=== PATIENT | male | born 1960 | race Caucasian/White ===

== ENCOUNTER → 2017-04-11 11:39 | Outpatient (CLI) | payer BC, SELFPAY ==
[2017-04-11 12:54] LABS: Prostate Specific Ag Screen < 0.1 ng/mL (0.0-4.0)
== END ==
PROVIDERS: PCP Family Medicine; Visit Provider Urology
DX: C61 Malignant neoplasm of prostate (principal)
CPT/HCPCS: 36415; G0103

== ENCOUNTER → 2017-05-12 09:05 | Outpatient (CLI) | payer BC, SELFPAY ==
[2017-05-12 11:30] LABS: Prostate Specific Ag, Diagnost < 0.05 ng/mL (0.0-4.0)
== END ==
PROVIDERS: PCP Family Medicine; Visit Provider Urology
DX: C61 Malignant neoplasm of prostate (principal)
CPT/HCPCS: 36415; 84153

== ENCOUNTER → 2017-08-11 10:40 | Outpatient (CLI) | payer BC, SELFPAY ==
[2017-08-11 14:02] LABS: Prostate Specific Ag, Diagnost < 0.05 ng/mL (0.0-4.0)
[2017-08-19 05:20] LABS: Testosterone,Free 5.8 pg/mL (7.2-24.0)
[2017-08-21 06:09] LABS: Testosterone, Total, LC/MS 339.6 ng/dL (264.0-916.0)
== END ==
PROVIDERS: Visit Provider Urology
DX: C61 Malignant neoplasm of prostate (principal); E29.1 Testicular hypofunction; Z12.5 Encounter for screening for malignant neoplasm of prostate
CPT/HCPCS: 36415; 84153; 84402

== ENCOUNTER → 2017-11-10 07:30 | Outpatient (CLI) | payer BC, SELFPAY ==
[2017-11-10 10:11] LABS: Prostate Specific Ag, Diagnost 0 ng/mL (0.0-4.0)
== END ==
PROVIDERS: Visit Provider Urology
DX: C61 Malignant neoplasm of prostate (principal)
CPT/HCPCS: 36415; 84153

== ENCOUNTER → 2018-02-09 09:53 | Outpatient (CLI) | payer BC, SELFPAY ==
[2018-02-09 13:38] LABS: Prostate Specific Ag, Diagnost 0 ng/mL (0.0-4.0)
== END ==
PROVIDERS: PCP Family Medicine; Visit Provider Urology
DX: C61 Malignant neoplasm of prostate (principal)
CPT/HCPCS: 36415; 84153

== ENCOUNTER → 2018-08-10 08:21 | Outpatient (CLI) | payer BC, SELFPAY ==
[2018-08-10 08:47] LABS: Basophils # 0.1 K/mm3 (0-0.2); Basophils % 1.4 % (0.1-2.0); Eosinophils # 0.2 K/mm3 (0.0-0.4); Hematocrit 47.6 % (42.0-52.0); Hemoglobin 15.7 g/dL (14.1-18.0); Lymphocytes # 1.4 K/mm3 (0.7-4.5); Lymphocytes % 33.5 % (10-50); Mean Corpuscular HGB Conc 32.9 g/dL (31.8-35.4); Mean Corpuscular Hemoglobin 29.7 pg (27.0-31.2); Mean Corpuscular Volume 90.3 fl (80-94); Mean Platelet Volume 8.5 fl (7.4-10.4); Monocytes # 0.3 K/mm3 (0.1-1.0); Monocytes % 7.3 % (1.7-9.3); Neutrophils # 2.2 K/mm3 (1.8-7.8); Neutrophils % 52.7 % (37.0-80.0); Platelet Count 212 K/mm3 (142-424); Red Blood Count 5.27 M/mm3 (4.60-6.20); Red Cell Distribution Width 13.9 % (11.5-17.5); White Blood Count 4.2 K/mm3 (4.8-10.8)
[2018-08-10 10:00] LABS: Alanine Aminotransferase 58 U/L (12-78); Albumin Level 3.9 gm/dL (3.4-5.0); Albumin/Globulin Ratio 1.2 (1.1-1.8); Alkaline Phosphatase 82 U/L (46-116); Aspartate Amino Transferase 24 U/L (15-37); Bilirubin,Total 0.8 mg/dL (0.2-1.0); Blood Urea Nitrogen 17 mg/dL (7-18); Calcium 8.7 mg/dL (8.5-10.1); Carbon Dioxide 29 mmol/L (21.0-32.0); Chloride 105 mmol/L (98-107); Chol/HDL Ratio 5.4 (1-3.5); Cholesterol 125 mg/dL (140-200); Creatinine,Serum 1.05 mg/dL (0.70-1.30); Estimated Glomerular Filt Rate 72 ml/min (>60); GFR (African American) 87 ML/MIN (>60); Globulin 3.3 gm/dl (1.3-3.2); Glucose 100 mg/dL (74-106); HDL Cholesterol 23 mg/dL (27-67); LDL Cholesterol 67 mg/dL (0-130); Sodium 140 mmol/L (136-145); Total Protein,Serum 7.2 gm/dL (6.4-8.2); Triglycerides 175 mg/dL (30-200); VLDL Cholesterol 35 mg/dL (0-40)
[2018-08-10 10:26] LABS: Prostate Specific Ag, Diagnost < 0.05 ng/mL (0.0-4.0)
== END ==
PROVIDERS: Urology; Visit Provider Family Medicine
DX: Z00.00 Encounter for general adult medical examination without abnormal findings (principal); C61 Malignant neoplasm of prostate
CPT/HCPCS: 36415; 80053; 80061; 84153; 85025

== ENCOUNTER 2018-11-01 05:55 | Observation (INO) ==
[2018-11-01 06:19] LABS: Basophils # 0.1 K/mm3 (0-0.2); Basophils % 1.5 % (0.1-2.0); Eosinophils # 0.2 K/mm3 (0.0-0.4); Eosinophils % 4.8 % (0.1-12.0); Hematocrit 46.9 % (42.0-52.0); Hemoglobin 15.5 g/dL (14.1-18.0); Lymphocytes # 1.5 K/mm3 (0.7-4.5); Lymphocytes % 36.7 % (10-50); Mean Corpuscular HGB Conc 32.9 g/dL (31.8-35.4); Mean Corpuscular Volume 90.6 fl (80-94); Mean Platelet Volume 8.6 fl (7.4-10.4); Monocytes # 0.4 K/mm3 (0.1-1.0); Monocytes % 9.7 % (1.7-9.3); Neutrophils % 47.3 % (37.0-80.0); Platelet Count 208 K/mm3 (142-424); Red Blood Count 5.18 M/mm3 (4.60-6.20); Red Cell Distribution Width 14.2 % (11.5-17.5); White Blood Count 4.2 K/mm3 (4.8-10.8)
[2018-11-01 06:28] LABS: Blood Urea Nitrogen 23 mg/dL (7-18); Carbon Dioxide 30 mmol/L (21.0-32.0); Chloride 108 mmol/L (98-107); Glucose 119 mg/dL (74-106); Sodium 146 mmol/L (136-145)
--- NOTE | 2018-11-01 06:29 | Emergency Department Note ---
ED Disposition Clinical Impression: Vasovagal reaction Chest pain Qualifiers: Chest pain type: precordial pain Qualified Code(s): R07.2 - Precordial pain Disposition: Admitted as Observation Condition on Discharge: Serious Referrals: Provider,Referral, [Referring] - - Critical Care Critical Care Time: No Attestation: On 11/01/18, the high probability of a clinically significant, sudden or life threatening deterioration of the following system(s) required my full and direct attention, intervention and personal management. The time I documented below is in addition to time spent performing reported procedures but includes the following listed in this critical care notation. Medical Decision Making - Medical Records Medical records reviewed: Yes: I reviewed the patient's medical records. - Sudarshan Inquiry Pt receiving controlled substance: No Vital Signs: 11/01/18 05:55 11/01/18 06:01 11/01/18 06:19 Temperature 98.0 F Temperature Source Oral Pulse Rate [Right] 91 H 79 94 H Respiratory Rate 18 15 18 Blood Pressure [Right Arm] 161/101 H 112/55 L 121/69 Blood Pressure Mean [Right Arm] 121 74 86 02 Sat by Pulse Oximetry 97 95 96 Oxygen Delivery Method Room Air Room Air Nasal Cannula Oxygen Flow Rate (LPM) 2 11/01/18 06:32 Temperature Temperature Source Pulse Rate [Right] 86 Respiratory Rate 18 Blood Pressure [Right Arm] 127/74 Blood Pressure Mean [Right Arm] 91 02 Sat by Pulse Oximetry 96 Oxygen Delivery Method Nasal Cannula Oxygen Flow Rate (LPM) 2 - Lab Data Lab results reviewed: Yes: I reviewed the patient's lab results. Lab Results 11/01/18 05:55: WBC 4.2 L, RBC 5.18, Hgb 15.5, Hct 46.9, MCV 90.6, MCH 29.8, MCHC 32.9, RDW 14.2, Plt Count 208, MPV 8.6, Neut % (Auto) 47.3, Lymph % (Auto) 36.7, Morris % (Auto) 9.7 H, Eos % (Auto) 4.8, Baso % (Auto) 1.5, Neut # (Auto) 2.0, Lymph # (Auto) 1.5, Morris # (Auto) 0.4, Eos # (Auto) 0.2, Baso # (Auto) 0.1 11/01/18 05:55: Sodium 146 H, Potassium 4.0, Chloride 108 H, Carbon Dioxide 30, Anion Gap 12.0, BUN 23 H, Creatinine 1.18, Estimated Creat Clear 117, Estimated GFR 63, Est GFR ( Amer) 76, Glucose 119 H, Calcium 9.0, Troponin I < 0.02 Result diagrams: 11/01/18 05:55 11/01/18 05:55 Orders (Tests/Meds): ED MEDICATIONS Generic Name Dose Route Start Last Admin Trade Name Freq PRN Reason Stop Dose Admin Sodium Chloride 1,000 mls @ 999 mls/hr 11/01/18 06:15 11/01/18 06:12 Sod Chlor 0.9% 1000ml Bag IV 11/01/18 07:15 999 mls/hr .[id number] GERI Administration Discontinued Medications Generic Name Dose Route Start Last Admin Trade Name Freq PRN Reason Stop Dose Admin Aspirin 324 mg 11/01/18 06:07 11/01/18 06:05 Aspirin 81mg Chewable Tablet PO 11/01/18 06:08 324 mg ONCE ONE Administration Atropine Sulfate 1 mg 11/01/18 06:10 11/01/18 06:06 Atropine 1mg/10ml Syringe IV 11/01/18 06:11 1 mg ONCE ONE Administration Morphine Sulfate 2 mg 11/01/18 06:21 11/01/18 06:22 Morphine 2mg/Ml Syringe IV 11/01/18 06:22 2 mg ONCE ONE Administration Nitroglycerin 0.4 mg 11/01/18 06:12 11/01/18 06:04 Nitrostat 0.4mg Sl Tablet SL 11/01/18 06:13 1 dose ONCE ONE Administration ORDERS Category Date Time Status XR chest portable Stat Exams 11/01/18 06:06 Taken Lipid Panel Stat Lab 11/01/18 06:33 Ordered EKG Request [ECG Request by /Natasha] Stat Y 11/01/18 06:06 Ordered - Radiology Data #1 Image(s): Chest Image Reviewed: Yes I reviewed the patient's radiology image Preliminary Findings: Abnormal - ECG Data Tracing #1 Normal Sinus Rhythm: Yes Ischemic changes: non-specific ST-T wave changes ECG compared to prior tracings: there are no prior tracings available for comparison Tracing #2 Normal Sinus Rhythm: Yes Ischemic changes: non-specific ST-T wave changes - Physician Consults Physician Consulted: angel Reason -: Admission Additional Consult: perry Reason -: Pt condition Chest Pain HPI - General Chief Complaint: Chest Pain Stated Complaint: Chest pain Time Seen by Provider: 11/01/18 06:00 Mode of Arrival: Ambulatory Source of Information: Patient, Spouse, Medical Record Limitations: No Limitations Description of Symptoms (Recalled from ER Triage Doc. by RN): Pt c/o CP in the left side of his chest radiating to his back accompanied by nausea since 4am. - History of Present Illness HPI narrative: acute onset of pressure chest pain which started this am - no known hx of cad - pt with no melena and has arthritis and occ gerd - pt was seen in the ed with with stable ekg and was given asa and ntg and then had dec pulse and dec loc requiring atropine and fluids - he continued with chest pain and was admitted for eval MD complaint: chest pain indicative of cardiac Onset (ago): hour(s) Duration: constant Activity at onset: awoke with symptoms Pain location: substernal Severity: moderate Quality: heaviness Pain radiation: LUE Risk Factors for CAD: Family Hx of CAD Treatments prior to or on arrival for Cardiac Chest Pain: none - NICK Score for Non-Stemi Age of Patient: 50-59 years old Heart Rate: 90-109 bpm Systolic Blood Pressure: 160-199 mmHg Serum Creatinine: 0.80-1.19 mg/dl CHF Kill[place] Class: I-No CHF Other Risk Factors: None Non-Stemi Risk Score: 73 - Related Data Home Medications Medication Instructions Recorded Confirmed allopurinol 100 mg tablet 200 mg PO QDAY 04/11/17 11/01/[address] 40 mg 40 mg PO BID 04/11/17 11/01/18 granules delayed release for susp celecoxib 50 mg capsule 50 mg PO ONCE 08/14/18 11/01/18 Allergies Allergy/AdvReac Type Severity Reaction Status Date / Time Penicillins Allergy Verified 08/14/18 16:55 [facility] History - Hepatitis A Screen Drug use history?: No High risk sexual behaviors?: No History of sexually transmitted infection?: No Currently employed?: No Childcare worker?: No Do you have indoor plumbing?: Yes Do you have electricity?: Yes Attestation statement:: This patient has been screened for Hepatitis A risk factors. I have reviewed the patient's past medical history: Yes Medical History: Reports:: Cancer (prostate) Other Surgeries: Yes: Other Amputation: No Fractures: No Comment: Prostatectomy - Social History Smoking Status: Never smoker Alcohol Intake: never Substance Use Type: denies use Occupational Status: employed Housing: house Household Members: spouse Family Hx:: Cancer ROS Obtained: Yes All systems reviewed & no additional complaints - Constitutional Constitutional: Denies fever(s) - Eyes Eyes: Denies change in vision - ENT Ears, Nose, Mouth, and Throat: Denies sore throat - Cardiovascular Cardiovascular: Reports chest pain - Respiratory Respiratory: No cough - Gastrointestinal Gastrointestingal: Denies: abdominal pain - Genitourinary Male Genitourinary: Denies hematuria - Musculoskeletal Musculoskeletal: Denies joint swelling - Integumentary/Breasts Skin/Breast: Denies rash - Neurologic Neurologic: Denies seizure-like activity Physical Exam - General General appearance: alert, obese - Head Head exam: normocephalic - Eye Eye exam: Present: PERRL, EOMI - ENT ENT exam: Present: mucous membranes dry - Neck Neck exam: Present: trachea midline - Respiratory Respiratory exam: Present: normal lung sounds bilaterally. Absent: respiratory distress - Cardiovascular Cardiovascular exam: Present: regular rate, systolic murmur. Absent: +S3, +S4 - Abdominal Exam Abdominal exam: Present: soft. Absent: tenderness - Extremities Exam Extremities exam: Present: full ROM - Neurological Exam Neurological exam: Present: alert, oriented X3, CN II-XII intact - Psychiatric Psychiatric exam: Present: normal affect - Skin Skin exam: Absent: rash
[2018-11-01 07:25] LABS: Chol/HDL Ratio 5.9 (1-3.5)
--- NOTE | 2018-11-01 07:53 | Pharmacy Consult Notes ---
[facility] VTE Monitoring - Patient Demographics Admission date: 11/01/18 Report Date: 11/01/18 Time: 07:53 Allergies/Adverse Reactions: Patient Allergies Penicillins Allergy (Verified 08/14/18 16:55) Height: 1.83 m Weight: 122.47 kg Patient Problems: Current Active Problems Chest pain (Acute) Vasovagal reaction (Acute) - VTE Risk Labs: VTE Related Lab Results Hgb 15.5 g/dL (14.1-18.0) 11/01/18 05:55 Hct 46.9 % (42.0-52.0) 11/01/18 05:55 Plt Count 208 K/mm3 (142-424) 11/01/18 05:55 BUN 23 mg/dL (7-18) H 11/01/18 05:55 Creatinine 1.18 mg/dL (0.70-1.30) 11/01/18 05:55 Estimated Creat Clear 117 mL/min (50-200) 11/01/18 05:55 Clinical Trial Participant: No - Prophylaxis VTE Prophylaxis Ordered?: Yes Types of VTE Prophylaxis: TEDS Knee High
--- NOTE | 2018-11-01 08:52 | Consult Report ---
History of Present Illness Consult date: 11/01/18 Requesting physician: David Knott Consult reason: chest pain Chief complaint: chest pain Additional Medical History:: 1. Obesity 2. History of Melgar's esophagus A. History of esophageal stricture status post dilatation 3. History of colon polyps, benign 4. Medication sensitivity History of present illness: 57-year-old white male with history of Melgar's esophagus presented to the emergency department for complaint of chest pain. Symptoms were noticed/woke him up around 4 AM this morning. Patient describes the chest pain as both sharp and heavy pressure with radiation to the back and the left arm. In the emergency department patient was given 4 baby aspirin and a sublingual nitroglycerin with a subsequent significant drop in blood pressure and loss of consciousness which was treated quickly with IV fluids and atropine. He was also given low-dose morphine after which he notes his symptoms have improved but not resolved. 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 He states his symptoms are different than his prior chest pain with his Melgar's esophagus and the musculoskeletal chest pain is different as well. EKGs show sinus rhythm with no acute changes and initial troponin is normal. Cardiology consulted for evaluation recommendation. Patient denies history of tobacco use, hypertension, hyperlipidemia or diabetes. He does have dietary restrictions that he is supposed to follow but he has been drinking sodas and did last night eat chocolate ice cream which is something he is supposed to avoid. [facility] History Medical History: Reports:: Cancer (prostate) Denies:: Diabetes Mellitus Type 1, Diabetes Mellitus Type 2, MRSA *Have you ever received a pneumonia vaccine?: No *Have you received a flu vaccine this season?: Yes Other Surgeries: Yes: Cholecystectomy, Other Amputation: No Fractures: No - *Social History Educational Level: Completed High School Smoking Status: Never smoker Alcohol Intake: never Substance Use Type: denies use *Occupational Status:: employed Housing: house Household Members: spouse *Travel in the last 8 weeks: None - Psychiatric History Expresses thoughts of harming self/others: None Suicide Plan Description: No Plan Family Hx:: Cancer Meds Home Medications Medication Instructions Recorded Confirmed Type allopurinol 100 mg tablet 200 mg PO DAILY 04/11/17 11/01/[address] 40 mg 40 mg PO BID 04/11/17 11/01/18 History granules delayed release for susp Celecoxib 200 mg PO DAILY 11/01/18 11/01/18 History Multivitamin/Iron/Folic Acid 1 each PO DAILY 11/01/18 11/01/18 History [Multi Complete-Iron Tablet] Psyllium Husk/Calcium Carb 1 cap PO BID 11/01/18 11/01/18 History [Metamucil Plus Calcium Capsule] Rutin/Hesp/Bioflav/C/Herb#196 1 each PO BID 11/01/18 11/01/18 History [Bioflex Tablet] Allergies Allergy/AdvReac Type Severity Reaction Status Date / Time Penicillins Allergy Intermediate Hives Verified 11/01/18 07:53 Review of Systems - *Cardiovascular Reports chest pain, Reports shortness of breath - *Respiratory Reports shortness of breath, Denies cough - *Gastrointestinal Denies abdominal pain, Denies nausea, Denies vomiting - *Genitourinary Denies blood in urine - *Musculoskeletal Denies joint pain, Denies back pain - *Neurologic Denies seizure-like activity, Denies fainting, Denies tingling Exam Vital signs and Labs for Last 24 Hours: Temp Pulse Resp BP Pulse Ox 97.9 F 70 17 115/66 98 11/01/18 08:00 11/01/18 08:00 11/01/18 08:00 11/01/18 08:00 11/01/18 08:00 Laboratory Results - last 24 hr 11/01/18 05:55: WBC 4.2 L, RBC 5.18, Hgb 15.5, Hct 46.9, MCV 90.6, MCH 29.8, M CHC 32.9, RDW 14.2, Plt Count 208, MPV 8.6, Neut % (Auto) 47.3, Lymph % (Auto) 36.7, [place] % (Auto) 9.7 H, Eos % (Auto) 4.8, Baso % (Auto) 1.5, Neut # (Auto) 2.0, Lymph # (Auto) 1.5, [place] # (Auto) 0.4, Eos # (Auto) 0.2, Baso # (Auto) 0.1 11/01/18 05:55: Sodium 146 H, Potassium 4.0, Chloride 108 H, Carbon Dioxide 30, Anion Gap 12.0, BUN 23 H, Creatinine 1.18, Estimated Creat Clear 117, Estimated GFR 63, Est GFR ( Amer) 76, Glucose 119 H, Calcium 9.0, Troponin I < 0.02 11/01/18 05:55: Triglycerides 202 H, Cholesterol 136 L, LDL Cholesterol 73, VLDL Cholesterol 40, HDL Cholesterol 23 L, Cholesterol/HDL Ratio 5.9 H I & O for Last 24 hours: Intake & Output 10/29/18 10/30/18 10/31/18 11/01/18 11:59 11:59 11:59 11:59 Intake Total 1000 / 1000 Balance 1000 / 1000 Weight 259 lb 3 oz - *Routine HEENT Exam Head: Present: normocephalic Eye: Present: EOMI, PERRL ENT: Present: mucous membranes moist - *Routine Neck Exam Present: supple. Absent: JVD, carotid bruit - *Routine Respiratory Exam Present: CTA bilaterally. Absent: accessory muscle use, rales, rhonchi, wheezes - *Routine Cardiovascular Exam Present: RRR. Absent: murmur, gallop, rubs - *Routine Abdominal Exam Present: soft. Absent: tenderness, distended, guarding - *Routine Extremities Exam Absent: edema, calf tenderness - *Routine Neurological Exam Present: alert, oriented X3, moving all extremities Assessment and Plan (1) Chest pain Current visit: Yes Status: Acute Qualifiers: Chest pain type: precordial pain Qualified Code(s): R07.2 - Precordial pain Category: Medical Code(s): R07.9 - Chest pain, unspecified (2) History of Melgar's esophagus Current visit: Yes Status: Acute Category: Medical Code(s): Z87.19 - Personal history of other diseases of the digestive system (3) Vasovagal reaction Current visit: Yes Status: Acute Category: Medical Code(s): R55 - Syncope and collapse (4) Recurrent prostate cancer Current visit: No Status: Acute Category: Medical Code(s): C61 - Malignant neoplasm of prostate - Assessment and plan all Dx Assessment and Plan for all problems:: 1. Chest pain in a patient with multiple possible etiologies including Melgar's esophagus, musculoskeletal chest pain and unstable angina pectoris. Initial troponin is normal and EKG is without acute ST segment changes. In light of the presumed need for recurrent scoping in the near future and the patient's sensitivity to antianginal medications (hypotension), would recommend proceeding with cardiac catheterization to delineate the patient's coronary anatomy. 2. Patient's echocardiogram this a.m. shows preserved ejection fraction without significant valvular heart disease or evidence of pericardial effusion. 3. Discussed recommendation for cardiac cath with patient, family and Dr. Knott who are in agreement to proceed today.
--- NOTE | 2018-11-01 10:13 | History & Physical Report ---
*Admission Date: 11/01/18 <Pamela Barr 11/01/18 10:13> *Chief complaint: chest pain <Pamela Barr 11/01/18 10:13> *History of present illness: Mr. Morillo is a 57-year-old male with a history of Melgar's esophagus who presented to the emergency room this morning complaining of midsternal chest pain radiating to the left side, arm, and back. He states the pain began around 4 AM. His states she woke him up at 5 AM complaining of the chest pain. He wanted to try to take a shower before coming to the emergency room to see if the pain eased. It continued therefore the patient presented to the emergency room. He was given 4 baby aspirin and a sublingual nitroglycerin with a subsequent significant drop in blood pressure and loss of consciousness which was treated quickly with IV fluids and atropine. He was also given low-dose morphine after which he notes his symptoms improved but have not resolved. 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 He states his symptoms are different than his prior chest pain with his Melgar's esophagus and the musculoskeletal chest pain is different as well. EKGs show sinus rhythm with no acute changes and initial troponin was normal. He was admitted and cardiology was consulted. <Pamela Barr 11/01/18 10:28> [facility] History Medical History: Reports:: Cancer (prostate), Gastroesophageal Reflux Disease(GERD) Denies:: Diabetes Mellitus Type 1, Diabetes Mellitus Type 2, MRSA <Pamela Barr 11/01/18 10:28> *Have you ever received a pneumonia vaccine?: No <Pamela Barr 11/01/18 10:13> *Have you received a flu vaccine this season?: Yes <Pamela Barr 11/01/18 10:13> Other Medical History: Reports: Other (Gout, Melgar's Esophagus) <Pamela Barr 11/01/18 10:28> Laterality Cases: Bilateral: Tonsillectomy <Pamela Barr 11/01/18 10:28> Other Surgeries: Yes: Cholecystectomy, Colonoscopy, EGD, Other (vasectomy, prostatectomy) <Pamela Barr 11/01/18 10:28> Amputation: No <Pamela Barr 11/01/18 10:13> Fractures: No <Pamela Barr 11/01/18 10:13> - *Social History Educational Level: Completed High School <Pamela Barr 11/01/18 10:13> Smoking Status: Never smoker <Pamela Barr 11/01/18 10:13> Alcohol Intake: never <Pamela Barr 11/01/18 10:13> Substance Use Type: denies use <Pamela Barr 11/01/18 10:13> *Occupational Status:: employed <Pamela Barr 11/01/18 10:13> Housing: house <Pamela Barr 11/01/18 10:13> Household Members: spouse <Pamela Barr 11/01/18 10:13> *Travel in the last 8 weeks: None <Pamela Barr 11/01/18 10:13> - Psychiatric History Expresses thoughts of harming self/others: None <Pamela Barr 11/01/18 10:13> Suicide Plan Description: No Plan <Pamela Barr 11/01/18 10:13> Family Hx:: Cancer <Pamela Barr 11/01/18 10:13> Review of Systems - Constitutional Denies chills, Denies fever(s), Denies weakness <Pamela Barr 11/01/18 10:28> - Eyes Denies blurry vision, Denies double vision <Pamela Barr 11/01/18 10:28> - ENT Denies nasal congestion, Denies sore throat <Pamela Barr 11/01/18 10:28> - *Cardiovascular Reports chest pain, Reports shortness of breath <Pamela Barr 11/01/18 10:28> - *Respiratory Reports shortness of breath, Denies cough <Pamela Barr 11/01/18 10:28> - *Gastrointestinal Denies abdominal pain, Denies loose stools, Denies nausea, Denies vomiting <Pamela Barr 11/01/18 10:28> - *Genitourinary Denies difficulty urinating, Denies painful urination <Pamela Barr 11/01/18 10:28> - *Musculoskeletal Reports joint pain, Reports other (chest wall pain and pain with deep breathing) <Pamela Barr - 11/01/18 10:28> - *Neurologic Reports fainting, Denies seizure-like activity, Denies tingling, Denies dizziness, Denies weakness <Pamela Barr - 11/01/18 10:28> Meds Home Medications Medication Instructions Recorded Confirmed Type allopurinol 100 mg tablet 200 mg PO DAILY 04/11/17 11/01/[address] 40 mg 40 mg PO BID 04/11/17 11/01/18 History granules delayed release for susp Aspirin [Aspirin 81mg EC Tab] 81 mg PO DAILY #30 tablet. 11/01/18 Rx Celecoxib 200 mg PO DAILY 11/01/18 11/01/18 History Multivitamin/Iron/Folic Acid 1 each PO DAILY 11/01/18 11/01/18 History [Multi Complete-Iron Tablet] Psyllium Husk/Calcium Carb 1 cap PO BID 11/01/18 11/01/18 History [Metamucil Plus Calcium Capsule] Rosuvastatin Calcium 5 mg PO DAILY #30 tab 11/01/18 Rx Rutin/Hesp/Bioflav/C/Herb#196 1 each PO BID 11/01/18 11/01/18 History [Bioflex Tablet] <David Knott - 11/01/18 13:14> Allergies Allergy/AdvReac Type Severity Reaction Status Date / Time Penicillins Allergy Intermediate Hives Verified 11/01/18 07:53 <David Knott - 11/01/18 13:14> Exam Vital signs and Labs for Last 24 Hours: Temp Pulse Resp BP Pulse Ox 97.9 F 65 16 110/63 99 11/01/18 08:00 11/01/18 12:59 11/01/18 12:59 11/01/18 12:59 11/01/18 12:59 Laboratory Results - last 24 hr 11/01/18 05:55: WBC 4.2 L, RBC 5.18, Hgb 15.5, Hct 46.9, MCV 90.6, MCH 29.8, MCHC 32.9, RDW 14.2, Plt Count 208, MPV 8.6, Neut % (Auto) 47.3, Lymph % (Auto) 36.7, [place] % (Auto) 9.7 H, Eos % (Auto) 4.8, Baso % (Auto) 1.5, Neut # (Auto) 2.0, Lymph # (Auto) 1.5, [place] # (Auto) 0.4, Eos # (Auto) 0.2, Baso # (Auto) 0.1 11/01/18 05:55: Sodium 146 H, Potassium 4.0, Chloride 108 H, Carbon Dioxide 30, Anion Gap 12.0, BUN 23 H, Creatinine 1.18, Estimated Creat Clear 117, Estimated GFR 63, Est GFR ( Amer) 76, Glucose 119 H, Calcium 9.0, Troponin I < 0.02 11/01/18 05:55: Triglycerides 202 H, Cholesterol 136 L, LDL Cholesterol 73, VLDL Cholesterol 40, HDL Cholesterol 23 L, Cholesterol/HDL Ratio 5.9 H 11/01/18 09:55: Troponin I < 0.02 <David Knott - 11/01/18 13:14> Temp Pulse Resp BP Pulse Ox 97.9 F 70 17 115/66 98 11/01/18 08:00 11/01/18 08:00 11/01/18 08:00 11/01/18 08:00 11/01/18 08:00 Laboratory Results - last 24 hr 11/01/18 05:55: WBC 4.2 L, RBC 5.18, Hgb 15.5, Hct 46.9, MCV 90.6, MCH 29.8, MCHC 32.9, RDW 14.2, Plt Count 208, MPV 8.6, Neut % (Auto) 47.3, Lymph % (Auto) 36.7, [place] % (Auto) 9.7 H, Eos % (Auto) 4.8, Baso % (Auto) 1.5, Neut # (Auto) 2.0, Lymph # (Auto) 1.5, [place] # (Auto) 0.4, Eos # (Auto) 0.2, Baso # (Auto) 0.1 11/01/18 05:55: Sodium 146 H, Potassium 4.0, Chloride 108 H, Carbon Dioxide 30, Anion Gap 12.0, BUN 23 H, Creatinine 1.18, Estimated Creat Clear 117, Estimated GFR 63, Est GFR ( Amer) 76, Glucose 119 H, Calcium 9.0, Troponin I < 0.02 11/01/18 05:55: Triglycerides 202 H, Cholesterol 136 L, LDL Cholesterol 73, VLDL Cholesterol 40, HDL Cholesterol 23 L, Cholesterol/HDL Ratio 5.9 H <Pamela Barr - 11/01/18 10:13> I & O for Last 24 hours: Intake & Output 10/30/18 10/31/18 11/01/18 11/02/18 11:59 11:59 11:59 11:59 Intake Total 1000 / 1000 Balance 1000 / 1000 Weight 259 lb 3 oz <David Knott - 11/01/18 13:14> Intake & Output 10/29/18 10/30/18 10/31/18 11/01/18 11:59 11:59 11:59 11:59 Intake Total 1000 / 1000 Balance 1000 / 1000 Weight 259 lb 3 oz <Pamela Barr - 11/01/18 10:13> - Constitutional no acute distress (drowsy) <Pamela Barr 11/01/18 10:28> - *Routine HEENT Exam Head: Present: normocephalic <Pamela Barr 11/01/18 10:28> Eye: Present: EOMI, PERRL <Pamela Barr 11/01/18 10:28> ENT: Present: mucous membranes moist <Pamela Barr 11/01/18 10:28> - *Routine Neck Exam Present: supple. Absent: lymphadenopathy <Pamela Barr 11/01/18 10:28> - *Routine Respiratory Exam Present: CTA bilaterally <Pamela Barr 11/01/18 10:28> - *Routine Cardiovascular Exam Present: RRR <Pamela Barr 11/01/18 10:28> - *Routine Abdominal Exam Present: soft, normoactive bowel sounds. Absent: tenderness <Pamela Barr 11/01/18 10:28> - *Routine Extremities Exam Absent: cyanosis, clubbing, edema <Pamela Barr 11/01/18 10:28> - *Routine Skin Exam Present: warm. Absent: rash <Pamela Barr 11/01/18 10:28> - *Routine Neurological Exam Present: alert, oriented X3 (but drowsy from medication) <aPmela Barr - 11/01/18 10:28> H&P: Result - Impressions CXR - Mild prominence of mediastinum possibly due to the AP supine technique. Follow-up with PA and lateral chest or chest CT with contrast may confirm <Pamela Barr - 11/01/18 10:28> Assessment and Plan (1) Chest pain Current visit: Yes Status: Acute Qualifiers: Chest pain type: precordial pain Qualified Code(s): R07.2 - Precordial pain Category: Medical Code(s): R07.9 - Chest pain, unspecified (2) History of Melgar's esophagus Current visit: Yes Status: Acute Category: Medical Code(s): Z87.19 - Personal history of other diseases of the digestive system (3) Vasovagal reaction Current visit: Yes Status: Acute Category: Medical Code(s): R55 - Syncope and collapse (4) Recurrent prostate cancer Current visit: No Status: Acute Category: Medical Code(s): C61 - Malignant neoplasm of prostate <Sandeep Barra - 11/01/18 10:20> (1) Chest pain Current visit: Yes Status: Acute Qualifiers: Chest pain type: precordial pain Qualified Code(s): R07.2 - Precordial pain Category: Medical Code(s): R07.9 - Chest pain, unspecified (2) History of Melgar's esophagus Current visit: Yes Status: Acute Category: Medical Code(s): Z87.19 - Personal history of other diseases of the digestive system (3) Vasovagal reaction Current visit: Yes Status: Acute Category: Medical Code(s): R55 - Syncope and collapse (4) Recurrent prostate cancer Current visit: No Status: Acute Category: Medical Code(s): C61 - Malignant neoplasm of prostate <David Knott - 11/01/18 13:14> - Assessment and plan all Dx Assessment and Plan for all problems:: According to the cardiology note, the patient's echocardiogram this a.m. showed a preserved ejection fraction without significant valvular heart disease or evidence of pericardial effusion. They recommend a heart cath and the patient and his family are in agreement. <Pamela Barr - 11/01/18 10:28>
--- NOTE | 2018-11-01 15:24 | Cardiology Report ---
PROCEDURE: 2-D M-mode and color Doppler study INDICATIONS FOR THE TEST: Chest pain+ COPD Heart Murmur Tobacco Smoking Palpitations Fatigue Syncope Edema Hypertension+Diabetes Mellitus Rheumatic Fever SOB HAQUE Obesity Hyperlipidemia Family History HD Additional History PT HAD EPISODE OF BRADYCARDIA IN ER GIVEN ATROPINE LIMITED WINDOWS PT FLAT ON BACK R/T CHEST PAIN AND MEDICATION SEDATION PATIENT INFORMATION HEIGHT: 70 WEIGHT:270 GENDER: Male B/P:127/72 2-D/M-MODE INTERPRETATION: 2-D MEASUREMENTS OBSERVED VALUES IN CMS Right Ventricular Dimension (RVDd) 2.2 Interventricular Septum (Thickness)(IVsd) 0.9 Left Ventricular Internal Dimensions(LVIDd) 5.1 Left Ventricular Posterior Wall (Thickness)(LVPWd) 1.1 Aortic Root 3.1 Aortic Cusp Separation 2.0 Left Atrial Dimensions (LAD) 4.2 2D 1. Technically very difficult study because of the patient's factor and poor acoustic windows. 2. Left atrium is mildly enlarged, left ventricle is normal size, there is mild qualitative concentric left ventricular hypertrophy, visually estimated ejection fraction 50% with no regional wall motion abnormality, endocardial surfaces are poorly visualized. Repeat study with definitely contrast is recommended 3. The right atrium and right ventricle are normal size and contractility. 4. The aortic valve is minimally thickened and fibrosed. 5. The mitral and tricuspid valve leaflets are minimally thickened. 6. The pulmonic valve is poorly present. 7. No significant pericardial effusion noted. DOPPLER INTERROGATION: Doppler interrogation of the aortic, mitral and tricuspid valvular presence of trace aortic, mild mitral and tricuspid regurgitation, tricuspid regurgitation jet velocity is inadequate for calculation of the right ventricular systolic pressure, grade 1 diastolic dysfunction seen without tissue Doppler evidence of raised left atrial pressure. CONCLUSION: 1. Technically very difficult study because of the patient's factors and poor acoustic windows. 2. Mildly enlarged left atrium, normal left ventricular size, mild qualitative concentric left ventricular hypertrophy, visually estimated ejection fraction of 50% with no regional wall motion abnormality, repeat study with definitely contrast is recommended. Grade 1 diastolic dysfunction seen without tissue Doppler evidence of raised left atrial pressure 3. Trace aortic, mild mitral and tricuspid regurgitation 4. No significant pericardial effusion noted.
--- NOTE | 2018-11-01 16:04 | Progress Note ---
Internal Medicine - PN: Subj *Date: 11/01/18 *Time: 16:01 Interval history: His heart cath showed only minor blockages and echo was normal Exam Vital signs and Labs for Last 24 Hours: Temp Pulse Resp BP Pulse Ox 97.9 F 62 16 168/76 H 99 11/01/18 08:00 11/01/18 15:00 11/01/18 15:00 11/01/18 15:00 11/01/18 15:00 Laboratory Results - last 24 hr 11/01/18 05:55: WBC 4.2 L, RBC 5.18, Hgb 15.5, Hct 46.9, MCV 90.6, MCH 29.8, MCHC 32.9, RDW 14.2, Plt Count 208, MPV 8.6, Neut % (Auto) 47.3, Lymph % (Auto) 36.7, [place] % (Auto) 9.7 H, Eos % (Auto) 4.8, Baso % (Auto) 1.5, Neut # (Auto) 2.0, Lymph # (Auto) 1.5, [place] # (Auto) 0.4, Eos # (Auto) 0.2, Baso # (Auto) 0.1 11/01/18 05:55: Sodium 146 H, Potassium 4.0, Chloride 108 H, Carbon Dioxide 30, Anion Gap 12.0, BUN 23 H, Creatinine 1.18, Estimated Creat Clear 117, Estimated GFR 63, Est GFR ( Amer) 76, Glucose 119 H, Calcium 9.0, Troponin I < 0.02 11/01/18 05:55: Triglycerides 202 H, Cholesterol 136 L, LDL Cholesterol 73, VLDL Cholesterol 40, HDL Cholesterol 23 L, Cholesterol/HDL Ratio 5.9 H 11/01/18 09:55: Troponin I < 0.02 11/01/18 13:17: Troponin I < 0.02 I & O for Last 24 hours: Intake & Output 10/30/18 10/31/18 11/01/18 11/02/18 11:59 11:59 11:59 11:59 Intake Total 1000 / 1000 240 / 240 Balance 1000 / 1000 240 / 240 Weight 259 lb 3 oz Assessment and Plan (1) Chest pain Status: Acute Qualifiers: Chest pain type: precordial pain Qualified Code(s): R07.2 - Precordial pain Category: Medical Code(s): R07.9 - Chest pain, unspecified (2) History of Melgar's esophagus Status: Acute Category: Medical Code(s): Z87.19 - Personal history of other diseases of the digestive system (3) Vasovagal reaction Status: Acute Category: Medical Code(s): R55 - Syncope and collapse (4) Recurrent prostate cancer Status: Acute Category: Medical Code(s): C61 - Malignant neoplasm of prostate - Assessment and plan all Dx Assessment and Plan for all problems:: Pain appears to be non-cardiac and likely muscular. Cardiology has cleared him for discharge and recommends ASA and statin therapy. He is being discharged and advised to remain off work until 11/05/18 and will f/u in a week.
--- NOTE | 2018-11-02 15:02 | Discharge Summary ---
General - General Admission date:: 11/01/18 <David Knott - 11/25/18 22:03> 11/01/18 <Pamela Barr - 11/02/18 15:03> Discharge date: 11/01/18 <Pamela Barr - 11/02/18 15:03> HPI HPI: Mr. Morillo is a 57-year-old male with a history of Melgar's esophagus who presented to the emergency room complaining of midsternal chest pain radiating to the left side, arm, and back. He states the pain began around 4 AM on the day of admission. His states she woke him up at 5 AM complaining of the chest pain. He wanted to try to take a shower before coming to the emergency room to see if the pain eased. It continued, therefore the patient presented to the emergency room. He was given 4 baby aspirin and a sublingual nitroglycerin with a subsequent significant drop in blood pressure and loss of consciousness, which was treated quickly with IV fluids and atropine. He was also given low- dose morphine, after which he notes his symptoms improved but have not resolved. 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 He states his symptoms are different than his prior chest pain with his Melgar's esophagus and the musculoskeletal chest pain is different as well. EKGs show sinus rhythm with no acute changes and initial troponin was normal. He was admitted and cardiology was consulted. <Pamela Barr - 11/02/18 15:03> Hospital Course Hospital Course: The patient's chest x-ray showed mild prominence of the mediastinum but radiology felt this is possibly due to the AP supine technique. His initial troponin was normal and his EKG was without acute ST segment changes. Cardiology was consulted and ordered an echo. It showed an EF of 50% with grade 1 diastolic dysfunction. They recommended a heart catheterization. The patient had a heart cath and it showed mild nonflow limiting coronary artery disease. Cardiology recommended an 81 mg aspirin daily as well as statin therapy for risk reduction and felt the patient could be discharged home. It was felt his symptoms were likely muscular rather than cardiac in nature and he was stable to be discharged home and was advised to remain off work until 11/05/2018. <Pamela Barr - 11/02/18 15:03> Objective Vital signs: Temp Pulse Resp BP Pulse Ox 97.9 F 62 16 168/76 H 99 11/01/18 08:00 11/01/18 15:00 11/01/18 15:00 11/01/18 15:00 11/01/18 15:00 <David Knott - 11/25/18 22:03> Temp Pulse Resp BP Pulse Ox 97.9 F 62 16 168/76 H 99 11/01/18 08:00 11/01/18 15:00 11/01/18 15:00 11/01/18 15:00 11/01/18 15:00 <Pamela Barr - 11/02/18 15:03> Narrative: - Constitutional no acute distress (drowsy) - *Routine HEENT Exam Head: Present: normocephalic Eye: Present: EOMI, PERRL ENT: Present: mucous membranes moist - *Routine Neck Exam Present: supple. Absent: lymphadenopathy - *Routine Respiratory Exam Present: CTA bilaterally - *Routine Cardiovascular Exam Present: RRR - *Routine Abdominal Exam Present: soft, normoactive bowel sounds. Absent: tenderness - *Routine Extremities Exam Absent: cyanosis, clubbing, edema - *Routine Skin Exam Present: warm. Absent: rash - *Routine Neurological Exam Present: alert, oriented X3 (but drowsy from medication) <Pamela Barr - 11/02/18 15:03> DS: Diagnosis - Discharge Diagnosis (1) Chest pain Status: Acute (2) History of Melgar's esophagus Status: Acute (3) Vasovagal reaction Status: Acute (4) Recurrent prostate cancer Status: Acute <Pamela Barr - 11/02/18 14:58> (1) Chest pain Status: Acute (2) History of Melgar's esophagus Status: Acute (3) Vasovagal reaction Status: Acute (4) Recurrent prostate cancer Status: Acute <David Knott - 11/25/18 22:03> Discharge Plan - Patient Discharge Instructions ACTIVITY: Continue current activity (Off work until Monday) <Pamela Barr - 11/02/18 15:03> DIET: low fat, low cholesterol <Pamela Barr - 11/02/18 15:03> Additional Instructions: May return to work on Monday, Aug 3. No lifting > 30 pounds until Nov 08. No restrictions starting Nov 09. <David Knott - 11/25/18 22:03> Patient Instructions: DI for Chest Pain <David Knott - 11/25/18 22:03> Forms: <David Knott - 11/25/18 22:03> - Follow up Plan Follow up with: David Knott MD [Primary Care Provider] - 1 week <David Knott - 11/25/18 22:03> Disposition: Home, Self-Care <David Knott - 11/25/18 22:03> Home Medications: Home Medications Medication Instructions Recorded Confirmed Type allopurinol 100 mg tablet 200 mg PO DAILY 04/11/17 11/09/[address] 40 mg 40 mg PO BID 04/11/17 11/09/18 History granules delayed release for susp Aspirin [Aspirin 81mg EC Tab] 81 mg PO DAILY #30 tablet. 11/01/18 11/09/18 Rx Celecoxib 200 mg PO DAILY 11/01/18 11/09/18 History Multivitamin/Iron/Folic Acid 1 each PO DAILY 11/01/18 11/09/18 History [Multi Complete-Iron Tablet] Psyllium Husk/Calcium Carb 1 cap PO BID 11/01/18 11/09/18 History [Metamucil Plus Calcium Capsule] Rosuvastatin Calcium 5 mg PO DAILY #30 tab 11/01/18 11/09/18 Rx Rutin/Hesp/Bioflav/C/Herb#196 1 each PO BID 11/01/18 11/09/18 History [Bioflex Tablet] losartan 25 mg tablet 25 mg PO DAILY #30 tab 11/09/18 11/09/18 Rx metoprolol succinate ER 25 mg 25 mg PO DAILY #30 tab 11/09/18 11/09/18 Rx tablet,extended release 24 hr <David Knott - 11/25/18 22:03> Prescriptions/Medication Reconciliation: New Rosuvastatin Calcium 5 mg PO DAILY #30 tab Aspirin [Aspirin 81mg EC Tab] 81 mg PO DAILY #30 tablet.[address] Davis esomeprazole magnesium DR 40 mg granules delayed release for susp 40 mg PO BID allopurinol 100 mg tablet 200 mg PO DAILY Multivitamin/Iron/Folic Acid [Multi Complete-Iron Tablet] 1 each PO DAILY Rutin/Hesp/Bioflav/C/Herb#196 [Bioflex Tablet] 1 each PO BID Psyllium Husk/Calcium Carb [Metamucil Plus Calcium Capsule] 1 cap PO BID Celecoxib 200 mg PO DAILY No Action losartan 25 mg tablet 25 mg PO DAILY #30 tab metoprolol succinate ER 25 mg tablet,extended release 24 hr 25 mg PO DAILY #30 tab <David Knott - 11/25/18 22:03> - Problem Reconciliation Problems Reviewed?: Yes <David Knott - 11/25/18 22:03> - Additional Information Additional Information: Concur with assessment and plan for discharge. <David Knott - 11/25/18 22:03>
== END 2018-11-01 15:58 | disposition home or self-care (01) ==
LOC: ER 05:55 → 2ND 05:55
PROVIDERS: ADMIT Family Medicine; ATTEND Family Medicine
CPT/HCPCS: 36415; 71010; 71045; 80048; 80061; 84484; 85025; 93005; 93306; 96365; 96375; 99152; 99285; C1725; C1760; C1769; G0378; J1644; Q9967

== ENCOUNTER → 2019-02-08 08:59 | Outpatient (CLI) | payer BC, SELFPAY ==
[2019-02-08 11:39] LABS: Prostate Specific Ag, Diagnost 0 ng/mL (0.0-4.0)
== END ==
PROVIDERS: Visit Provider Urology
DX: C61 Malignant neoplasm of prostate (principal)
CPT/HCPCS: 36415; 84153

== ENCOUNTER → 2019-05-09 15:03 | Outpatient (CLI) | payer BC, SELFPAY ==
--- NOTE | 2019-05-09 15:14 | CT_ITS ---
PROCEDURE: CT ABDOMEN PELVIS WO CON CLINICAL INDICATION: FLANK PAIN Right flank pain COMPARISON: No exams were available for comparison TECHNIQUE: Axial images obtained with sagittal and coronal reformats. All CT scans at the facility use one or more dose reduction, viz: automated exposure control, ma/kV adjustment per patient size (including targeted exams where dose is matched to indication, i.e. head), or iterative reconstruction technique. FINDINGS: LOWER THORAX: 5 mm noncalcified nodules present in the left lower lobe posteriorly in the subpleural region. There is an additional 4 mm nodule in this region as well. ABDOMEN & PELVIS: Post cholecystectomy changes. The liver, spleen, adrenal glands, and pancreas have an unremarkable unenhanced appearance. There is a small left renal calculus at 3 mm. No right renal calculi. No ureteral calculi or hydronephrosis. No intestinal obstruction or free air. No evidence of appendicitis. There are scattered colonic diverticula but no evidence of diverticulitis. There are few small mesenteric lymph nodes. No intestinal obstruction or free air. There are degenerative changes in the lumbar spine. There is a small exophytic nodule projecting off the upper pole of the left kidney and may be due to small cyst IMPRESSION: 1. No acute abdominal or pelvic findings. 2. Nonobstructing left renal calculus. 3. There are 2 left lower lobe nodules which are nonspecific. Consider six-month follow-up of the chest to confirm stability Dictated by: Kyle Flowers MD 05/09/2019 16:11 Electronically signed by Kyle Flowers MD in [place] 05/09/2019 16:11
== END ==
PROVIDERS: PCP Family Medicine; Visit Provider Family Medicine
DX: R10.9 Unspecified abdominal pain (principal)
CPT/HCPCS: 74176

== ENCOUNTER → 2020-03-25 14:06 | Outpatient (POV) | payer BC, SELFPAY | DX: Z00.00 Encounter for general adult medical examination without abnormal findings (principal) ==

== ENCOUNTER → 2020-04-16 12:06 | Outpatient (CLI) | payer BC, SELFPAY ==
[2020-04-16 13:27] LABS: Coronavirus 19 IgG Antibody Positive (Negative); Coronavirus 19 IgM Antibody Positive (Negative)
[2020-04-17 08:18] LABS: Covid-19 Nasal PCR Sendout P&C POSITIVE
== END ==
PROVIDERS: PCP Family Medicine; Visit Provider Family Medicine
DX: Z20.822 Contact with and (suspected) exposure to COVID-19 (principal); U07.1 COVID-19
CPT/HCPCS: 36415; 86328; U0004

== ENCOUNTER → 2020-04-30 15:19 | Outpatient (CLI) | payer BC, SELFPAY | PROVIDERS: PCP Family Medicine | DX: Z01.818 Encounter for other preprocedural examination (principal); Z20.822 Contact with and (suspected) exposure to COVID-19; U07.1 COVID-19; H25.11 Age-related nuclear cataract, right eye | CPT/HCPCS: U0003 ==

== ENCOUNTER → 2020-05-13 14:23 | Outpatient (POV) | payer BC, SELFPAY | DX: Z00.00 Encounter for general adult medical examination without abnormal findings (principal) ==

== ENCOUNTER → 2020-06-10 15:54 | Outpatient (POV) | payer BC, SELFPAY | DX: Z00.00 Encounter for general adult medical examination without abnormal findings (principal) ==

== ENCOUNTER → 2020-07-01 12:54 | Outpatient (POV) | payer BC, SELFPAY | DX: Z00.00 Encounter for general adult medical examination without abnormal findings (principal) ==

== ENCOUNTER 2020-12-07 19:25 | Emergency (ER) | payer OTHER, BC, SELFPAY ==
[2020-12-07 19:26] VITALS: BP 137/79; PULSE 77; RESP 18; TEMP 37.1; O2SAT 99; BMI 33.2
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
--- NOTE | 2020-12-07 19:45 | PC.NURSE ---
cervical collar applied at triage
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
[2020-12-07 21:42] VITALS: BP 134/78; PULSE 70; RESP 18; TEMP 37.1; O2SAT 99
== END 2020-12-07 21:43 | disposition home or self-care (01) ==
PROVIDERS: Emergency Provider Emergency Medicine; PCP Family Medicine
DX: S13.4XXA Sprain of ligaments of cervical spine, initial encounter (principal); S39.012A Strain of muscle, fascia and tendon of lower back, initial encounter; V43.72XA Person on outside of car injured in collision with other type car in traffic accident, initial encounter; Y92.488 Other paved roadways as the place of occurrence of the external cause
CPT/HCPCS: 70450; 71045; 72125; 72131; 72170; 73030; 99282

== ENCOUNTER → 2021-06-29 13:50 | Outpatient (POV) | payer OTHER, BC, SELFPAY | PROVIDERS: Visit Provider Dermatology | DX: Z00.00 Encounter for general adult medical examination without abnormal findings (principal) ==

== ENCOUNTER → 2021-07-02 08:22 | Outpatient (CLI) | payer BC, SELFPAY ==
[2021-07-02 10:34] LABS: Alanine Aminotransferase 42 U/L (12-78); Albumin Level 4.4 g/dl (3.5-5.0); Albumin/Globulin Ratio 1.8 (1.1-1.8); Alkaline Phosphatase 69 U/L (38-126); Aspartate Amino Transferase 39 U/L (17-59); Bilirubin,Total 0.7 mg/dl (0.2-1.3); Blood Urea Nitrogen 13 mg/dl (9-20); Calcium 9.3 mg/dl (8.4-10.2); Carbon Dioxide 31 mmol/L (22.0-30.0); Chloride 105 mmol/L (98-107); Chol/HDL Ratio 4.1 (1-3.5); Cholesterol 106 mg/dl (140-200); Estimated Glomerular Filt Rate 86 ml/min (>60); GFR (African American) 103 ML/MIN (>60); Globulin 2.5 g/dL (1.3-3.2); Glucose 111 mg/dl (74-100); HDL Cholesterol 26 mg/dl (40-60); Sodium 141 mmol/L (136-145); Total Protein,Serum 6.9 g/dl (6.3-8.2); Triglycerides 113 mg/dl (30-150); Uric Acid 5.1 mg/dl (3.5-8.5); VLDL Cholesterol 23 mg/dL (0-40)
== END ==
PROVIDERS: Visit Provider Family Medicine
DX: E79.0 Hyperuricemia without signs of inflammatory arthritis and tophaceous disease (principal); E78.5 Hyperlipidemia, unspecified
CPT/HCPCS: 36415; 80053; 80061; 84550

== ENCOUNTER 2021-07-13 14:37 | Emergency (ER) | payer OTHER, SELFPAY ==
--- NOTE | 2021-07-13 14:44 | XR_ITS ---
FINAL REPORT CLINICAL HISTORY: trauma, pain, dropped sledge hammer on foot FINDINGS: 3 views of the left foot were obtained. There are old healed fracture deformities of the proximal 3rd and 4th metatarsals. There is no acute fracture or dislocation. There is a large Rudy deformity. The joint spaces are intact. The soft tissues are unremarkable. IMPRESSION: No acute process. Reviewed, Interpreted and Dictated by Michel De La Fuente MD Transcribed by Pepe Silva Authenticated by Michel De La Fuente MD on 07/13/2021 04:11:40 PM [facility]
--- NOTE | 2021-07-13 14:45 | HMH.EDEXTP ---
ED Disposition Clinical Impression: Contusion of left foot Qualifiers: Encounter type: initial encounter Qualified Code(s): S90.32XA - Contusion of left foot, initial encounter Disposition: Home, Self-Care Condition on Discharge: Good Instructions: Contusion Additional Instructions: follow up with work doctor as needed Referrals: David Knott MD [Primary Care Provider] - - Critical Care Critical Care Time: No Attestation: On , the high probability of a clinically significant, sudden or life threatening deterioration of the following system(s) required my full and direct attention, intervention and personal management. The time I documented below is in addition to time spent performing reported procedures but includes the following listed in this critical care notation. Medical Decision Making - Medical Records Medical records reviewed: Yes: I reviewed the patient's medical records. - Sudarshan Inquiry Pt receiving controlled substance: No Vital Signs: 07/13/21 14:53 Temperature 98.2 F Temperature Source Oral Pulse Rate [Right Brachial] 88 Respiratory Rate 18 Blood Pressure [Right Arm] 169/94 H Blood Pressure Mean [Right Arm] 119 Blood Pressure Source [Right Arm] Automatic Cuff Blood Pressure Position [Right Arm] Sitting 02 Sat by Pulse Oximetry 96 Oxygen Delivery Method Room Air Orders (Tests/Meds): ED MEDICATIONS Discontinued Medications Generic Name Dose Route Start Last Admin Trade Name Freq PRN Reason Stop Dose Admin Acetaminophen 1,000 mg 07/13/21 14:44 Acetaminophen 500mg Tab PO 07/13/21 14:45 ONCE ONE ORDERS Category Date Time Status Foot XR left minimum 3 views [XR foot LT min 3V] Stat Exams 07/13/21 14:44 Taken Medical Decision Narrative: left foot xray neg by me Extremity Problem HPI - General Stated complaint: WC 07/13 lt foot injury Time Seen by Provider: 07/13/21 14:45 - History of Present Illness HPI Narrative: at work, 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, 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, no other injuries or symptoms reported Complaint: extremity pain Onset (ago): minute(s) Consistency: constant Location: left Quality: aching Radiation: none Relieving factors: immobilization Exacerbating factors: weight bearing Associated symptoms: denies other symptoms - Related Data Home Medications Medication Instructions Recorded Confirmed allopurinol 100 mg tablet 200 mg PO DAILY 04/11/17 12/07/20 esomeprazole magnesium 40 mg 40 mg PO BID 04/11/17 12/07/20 granules delayed release for susp Celecoxib 200 mg PO DAILY 11/01/18 12/07/20 Multivitamin/Iron/Folic Acid 1 each PO DAILY 11/01/18 12/07/20 [Multi Complete-Iron Tablet] Aspirin [Aspirin 81mg EC Tab] 81 mg PO DAILY 12/07/20 12/07/20 Rosuvastatin Calcium 5 mg PO DAILY 12/07/20 12/07/20 Allergies Allergy/AdvReac Type Severity Reaction Status Date / Time Penicillins Allergy Intermediate Hives Verified 02/12/19 15:28 [facility] History - Hepatitis A Screen Attestation statement:: This patient has been screened for Hepatitis A risk factors. Medical History: Reports:: Cancer, Gastroesophageal Reflux Disease(GERD), Hiatal Hernia, Hyperlipidemia Denies:: Diabetes Mellitus Type 1, Diabetes Mellitus Type 2, MRSA Other Medical History: Reports: Arthritis, Other Comment: FERNANDO, on CPAP Laterality Cases: Bilateral: Tonsillectomy Other Surgeries: Yes: Cancer Surgery, Cardiac Catheterization, Cholecystectomy, Colonoscopy, EGD, Other Amputation: No Fractures: No Comment: Prostatectomy - Social History Smoking Status: Never smoker Alcohol Intake: never Substance Use Type: denies use Occupational Status: employed Housing: house Household Members: spouse Family Hx:: Cancer Comment: Sister-Heart transplant due to infection@60's ROS Obtained: Yes All systems reviewed & no additional complaints Physical Exam - General General appearance: alert, in no apparent distress
[2021-07-13 14:53] VITALS: BP 169/94; PULSE 88; RESP 18; TEMP 36.8; O2SAT 96; BMI 35.2
[2021-07-13 15:32] VITALS: BP 158/86; PULSE 86; RESP 18; TEMP 36.8; O2SAT 98
== END 2021-07-13 15:34 | disposition home or self-care (01) ==
PROVIDERS: Emergency Provider Emergency Medicine; PCP Family Medicine
DX: S90.32XA Contusion of left foot, initial encounter (principal); W22.8XXA Striking against or struck by other objects, initial encounter; Y92.69 Other specified industrial and construction area as the place of occurrence of the external cause; Y99.0 Civilian activity done for income or pay; Z88.0 Allergy status to penicillin
CPT/HCPCS: 73630; 99283

== ENCOUNTER → 2022-06-27 07:44 | Outpatient (CLI) | payer BC, SELFPAY ==
[2022-06-27 09:06] LABS: Potassium 4.1 mmoL/L (3.5-5.1)
[2022-06-27 09:07] LABS: Alanine Aminotransferase 39 U/L (12-78); Albumin Level 4.4 g/dl (3.5-5.0); Albumin/Globulin Ratio 1.7 (1.1-1.8); Alkaline Phosphatase 80 U/L (38-126); Anion Gap 11.1 mEq/L (5-15); Aspartate Amino Transferase 33 U/L (17-59); Bilirubin,Total 0.5 mg/dl (0.2-1.3); Blood Urea Nitrogen 13 mg/dl (9-20); Calcium 8.8 mg/dl (8.4-10.2); Carbon Dioxide 28 mmol/L (22.0-30.0); Chloride 105 mmol/L (98-107); Chol/HDL Ratio 4.8 (1-3.5); Cholesterol 120 mg/dl (140-200); Estimated Glomerular Filt Rate 98 ml/min (>60); GFR (African American) 118 ML/MIN (>60); Globulin 2.6 g/dL (1.3-3.2); Glucose 108 mg/dl (74-100); HDL Cholesterol 25 mg/dl (40-60); Sodium 140 mmol/L (136-145); Triglycerides 263 mg/dl (30-150); Uric Acid 4.2 mg/dl (3.5-8.5); VLDL Cholesterol 53 mg/dL (0-40)
[2022-06-27 09:18] LABS: Direct LDL Cholesterol 71.47 mg/dL (100-129)
== END ==
PROVIDERS: PCP Family Medicine; Visit Provider Family Medicine
DX: E78.5 Hyperlipidemia, unspecified (principal)
CPT/HCPCS: 36415; 80053; 80061; 84550

== ENCOUNTER 2022-07-20 14:53 | Emergency (ER) | payer OTHER, BC, SELFPAY ==
[2022-07-20] VITALS (8 sets, daily range): BP systolic 123–139; BP diastolic 66–97; PULSE 76–91; RESP 16–18; TEMP 36.7; O2SAT 94–100; BMI 35.2
--- NOTE | 2022-07-20 15:02 | ECG_ITS ---
APPROVED REPORT Exam: Resting ECG HR:92 bpm ECG Measurements Heart Rate [address] 152 P 17 QRSd 90 QRS 56 QT 354 T 48 QTc 403 Conclusion SINUS RHYTHM NONSPECIFIC T-WAVE ABNORMALITY BORDERLINE ECG UNCONFIRMED REPORT Electronically signed by : Devante Iqbal MD 07/22/2022 14:24:37
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
[2022-07-20 15:13] LABS: Basophils # 0.1 K/mm3 (0-0.2); Basophils % 1.2 % (0.1-2.0); Eosinophils # 0.3 K/mm3 (0.0-0.4); Eosinophils % 5.6 % (0.1-12.0); Hematocrit 49.3 % (42.0-52.0); Hemoglobin 16.5 g/dL (14.1-18.0); Lymphocytes # 1.7 K/mm3 (0.7-4.5); Lymphocytes % 33.5 % (10-50); Mean Corpuscular HGB Conc 33.6 g/dL (31.8-35.4); Mean Corpuscular Hemoglobin 29.8 pg (27.0-31.2); Mean Corpuscular Volume 88.9 fl (80-94); Mean Platelet Volume 8.9 fl (7.4-10.4); Monocytes # 0.5 K/mm3 (0.1-1.0); Monocytes % 9.7 % (1.7-9.3); Neutrophils # 2.6 K/mm3 (1.8-7.8); Neutrophils % 50.1 % (37.0-80.0); Platelet Count 220 K/mm3 (142-424); Red Blood Count 5.54 M/mm3 (4.60-6.20); Red Cell Distribution Width 14.5 % (11.5-17.5); White Blood Count 5.1 K/mm3 (4.8-10.8)
[2022-07-20 15:23] LABS: Chloride 104 mmol/L (98-107); Sodium 139 mmol/L (136-145)
[2022-07-20 15:26] LABS: Blood Urea Nitrogen 16 mg/dl (9-20); Creatine Kinase 123 U/L (55-170); Creatinine Clearance Estimated 126 mL/min (50-200); Estimated Glomerular Filt Rate 75 ml/min (>60); GFR (African American) 91 ML/MIN (>60)
[2022-07-20 15:27] LABS: Carbon Dioxide 28 mmol/L (22.0-30.0); Glucose 112 mg/dl (74-100)
[2022-07-20 15:57] LABS: Troponin I < 0.01 ng/ml (0.00-0.034)
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
--- NOTE | 2022-07-20 17:16 | PC.NURSE ---
2ND TROP DRAWN AND SENT TO LAB
[2022-07-20 18:54] LABS: Troponin I < 0.01 ng/ml (0.00-0.034)
== END 2022-07-20 19:14 | disposition home or self-care (01) ==
PROVIDERS: Emergency Provider Emergency Medicine; PCP Family Medicine
DX: T75.4XXA Electrocution, initial encounter (principal); R07.9 Chest pain, unspecified
CPT/HCPCS: 71045; 80048; 82550; 84484; 85025; 93005; 99285

== ENCOUNTER 2022-09-02 06:22 | Day surgery (SDC) | payer BC, SELFPAY ==
[2022-08-30 17:31] VITALS: BMI 34.4
[2022-09-02] VITALS (12 sets, daily range): BP systolic 87–148; BP diastolic 59–87; PULSE 65–86; RESP 14–18; TEMP 36.3–36.6; O2SAT 90–98
--- NOTE | 2022-09-02 07:02 | EXP.ANES.CKL ---
[facility] Disclaimer: The information contained in this section may have been updated after the patient was seen, as this information can be updated by other users. Medical History History of Melgar's esophagus History of gout History of prostate cancer FERNANDO (obstructive sleep apnea) Surgical History History of prostate surgery Hx laparoscopic cholecystectomy Family History Other Family history of colon cancer Family history of prostate cancer Social History Smoking Status: Never smoker alcohol intake: never substance use type: denies use current occupational status: employed Travel in the last 8 weeks: None household members: spouse housing: house current occupation: electrician front caffeine: No [facility] Anesthesia Checklist Patient Identification Patient Identification: Arm Band and Verbal (Name & ) Structural Data Admitted From: Home Planned Operative Procedure/s: Colonoscopy Consent for Planned Operative Procedure(s) Verified: Yes NPO Status Verified Time NPO: 00:00 Airway Assessment C-Spine Mobility Assessed: Yes TMJ Mobility Assessed: Yes Dentition: Dentures-poor fitting Neurological Assessment Level of Consciousness: Awake Hx Seizures: No Numbness or tingling in extremities: No Anesthesia Plan Anesthesia Risk discussed: Yes Anesthesia Plan: Verified ASA Class: II Anesthesia Type: MAC
--- NOTE | 2022-09-02 07:51 | [facility].SCOPE ---
Procedure: Date: 09/02/22 Patient Date of :: 1960 Procedure Performed:: Total colonoscopy to terminal ileum with multiple polypectomy Indications:: Patient is a pleasant 61-year-old male referred by Perry Knott for colonoscopy. Patient states that I had previously performed colonoscopy approximately 8 years ago. I am unable to locate any record of this. He has a history of prostate cancer. He does have a family history of colon cancer in his mother diagnosed in her 80s. Interestingly, according to the record there is history of Melgar's esophagus. Performing Provider:: Nithin Connor MD Referring Provider:: Perry Knott MD Sedation:: MAC sedation Procedure:: Patient history was obtained and appropriate physical examination was performed. Patient's medications and allergies were reviewed. Informed consent was obtained after explaining the benefits, alternatives, and risks of the procedure including, but not limited to, bleeding, perforation, missed lesions, and adverse reaction to anesthesia medications. Patient was transported to endoscopy procedure room. Patient was connected to monitoring devices. Throughout the procedure the patient's blood pressure, pulse, and oxygen saturations were monitored continuously. Patient identification and planned procedure were verified by the staff. Patient was positioned in lateral decubitus position. Digital anorectal exam was performed. Prostate was absent. Variable stiffness Olympus colonoscope was inserted and advanced under direct visualization to the cecum. Adequacy of the colonic preparation was noted. The colonoscope was advanced a short distance into the terminal ileum. The colonoscope was then slowly withdrawn while carefully examining the color, texture, anatomy, and integrity of the mucosoa circumferentially. Within the rectum retroflexion was performed. Colonoscope was then withdrawn. His colonic preparation was somewhat fair with large amount of particulate opaque liquid stool throughout the colon. High-volume irrigation and suctioning was performed. There was a diminutive but adenomatous appearing polyp in the ascending colon removed with biopsy forceps. At the hepatic flexure there was a sessile adenomatous appearing polyp removed with cold snare. In the proximal transverse colon there were a couple of small adenomatous appearing polyps removed with cold snare. In the descending colon there was a diminutive polyp removed with biopsy forceps. In the sigmoid colon there was a tiny possible polyp removed with biopsy forceps. He did have some rare sigmoid diverticulosis. Retroflexion revealed no evidence of any pathologic internal hemorrhoids. Findings:: Polyps as noted above. Total of 6 polyps removed via variety of technique Rare diverticulosis Recommendations:: Follow-up colonoscopy pending pathology, due to probable adenomatous polyps and family history of colon cancer and suboptimal preparation likely within 3 years Complications:: None immediately apparent Estimated blood obtained (mL): 2
--- NOTE | 2022-09-02 07:55 | PC.NURSE ---
Addendum entered by Bhakti Cunha RN 09/02/22 09:00: Oral Airway removed @ 0830. Pt moving, arrousable by tactile stimulation. remains at bedside. VSS. Remains on room air, resp even, unlabored. Bed in lowest locked position w/ bed rails up. Original Note: 0755 - Pt to post op w/ oral airway, unarrousable by stimulation. Anesthesia aware and at bedside. VS continuously monitored.
== END 2022-09-02 09:30 | disposition home or self-care (01) ==
PROVIDERS: PCP Family Medicine; Visit Provider Surgery
PROC: 0DJD8ZZ Inspection of Lower Intestinal Tract, Via Natural or Artificial Opening Endoscopic (ICD-10-PCS; CPT 45380; principal; 2022-09-02 07:30)
DX: Z12.11 Encounter for screening for malignant neoplasm of colon (principal); D12.2 Benign neoplasm of ascending colon; D12.4 Benign neoplasm of descending colon; Z79.899 Other long term (current) drug therapy; K57.30 Diverticulosis of large intestine without perforation or abscess without bleeding; Z80.0 Family history of malignant neoplasm of digestive organs
CPT/HCPCS: 45380; 45385

== ENCOUNTER 2023-06-13 09:15 | Outpatient (CLI) | payer BC, SELFPAY ==
--- NOTE | 2023-06-13 09:33 | XR_ITS ---
FINAL REPORT CLINICAL HISTORY: RT HIP PAIN COMPARISON: None FINDINGS: RIGHT HIP Two views of the right hip demonstrate no acute fracture or dislocation. Mild right and moderate left hip degenerative change. There is a chronic calcification adjacent to the right superior acetabulum. IMPRESSION: Degenerative and chronic changes without acute bony abnormality. Reviewed, Interpreted and Dictated by Nithin Painting III, MD Transcribed by Selma Edwards Authenticated and [facility]
== END 2023-06-13 23:59 ==
LOC: RAD 09:17
PROVIDERS: PCP Family Medicine; Visit Provider Family Medicine
DX: M25.551 Pain in right hip (principal)
CPT/HCPCS: 73502